=== PATIENT | male | born 1995 | race Caucasian/White ===

== ENCOUNTER 2020-11-05 11:28 | Emergency (ER) | payer OTHER, SELFPAY ==
[2020-11-05 11:48] VITALS: BP 116/75; PULSE 84; RESP 16; TEMP 36.8; O2SAT 97
--- NOTE | 2020-11-05 13:15 | W.ED.HEATRA ---
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 Patient denies any loss of consciousness. Patient denies any headache or nausea or vomiting. Patient appears well. Patient appears no acute distress. MD Complaint: head injury Onset (ago): hour(s) Mechanism of Injury: other (Working cattle) Place: home Loss of Consciousness: no Location of injury: face Severity: mild Quality: dull Radiation: none Review of Systems General: Reports: 10 or more systems reviewed and unremarkable except in HPI and below Skin/Breast: Reports: other (Contusion right eyebrow) Physical Exam Const: COMMON NORMALS: no acute distress and patient oriented x3 GENERAL APPEARANCE: cooperative HENMT: COMMON NORMALS: normocephalic, TM's normal bilaterally and Normal external nose present HEAD & SCALP: normal to inspection and normocephalic NOSE: Normal external nose present TYMPANIC MEMBRANE: TM's normal bilaterally MOUTH: Normal oral and palatal mucosa present THROAT: posterior oropharynx normal Eye: GENERAL EYE: appearance normal, both eyes and all related structures Neck/C-Spine: COMMON NORMALS: full ROM Chest: COMMONS NORMALS: normal inspection of the chest Resp: COMMON NORMALS: normal respiratory effort EFFORT & INSPECTION: Yes able to speak in complete sentences Cardio: COMMON NORMALS: regular rate and regular rhythm RATE: regular rate RHYTHM: regular rhythm GI: COMMON NORMALS: non-tender : COMMON NORMALS: Yes no CVA tenderness BLADDER/KIDNEY EXAM: Yes no CVA tenderness Back/Pelvis: COMMON NORMALS: no CVA tenderness and thoracic and lumbar spine normal to inspection Extremity: COMMON NORMALS: normal to inspection Neuro: COMMON NORMALS: patient oriented x3 and moves all extremities Psych: COMMON NORMALS: mental status grossly normal and cooperative Skin: COMMON NORMALS: no rashes or lesions noted GENERAL SKIN EXAM: no rashes or lesions noted Course Vital Signs: Vital signs: Vital Signs Temperature 98.2 F 11/05/20 11:48 Pulse Rate 84 11/05/20 11:48 Respiratory Rate 16 11/05/20 11:48 Blood Pressure 116/75 11/05/20 11:48 Pulse Oximetry 97 11/05/20 11:48 MDM - Head Injury MDM Narrative: Medical decision making narrative: Patient comes in today with injury to the right eyebrow. On exam patient has no palpable crepitus or tenderness to the right eyebrow or facial bones. Pupils are equal and reactive. No nystagmus. Bilateral tympanic membranes are clear. No signs of significant head injury or fractures are noted. Patient does have a small area of contusion/hematoma to the right lateral eyebrow area. EOMs are intact. Differential diagnosis includes concussion, intracranial bleeding, facial fracture. Exam noted no signs of fracture or intracranial bleeding. Reviewed exam with patient with recommendations for treatment and monitoring. Patient reported understanding agreed to plan. Family member was also present and agreed to plan. Discharge Plan Discharge Patient Disposition: Home Clinical Impression: Contusion of right eyebrow Qualifiers: Encounter type: initial encounter Qualified Code(s): S00.11XA - Contusion of right eyelid and periocular area, initial encounter Closed head injury Qualifiers: Encounter type: initial encounter Qualified Code(s): S09.90XA - Unspecified injury of head, initial encounter Condition: Stable Discharge Orders: Discharge ED (Routine); Ordered 11/05/20 Ordered By: Blaine Carnes Discharge Diet: Usual diet Discharge Activity: Increase activity as tolerated Patient Instructions: Minor Head Injury (ED), Opioid Safety Activity Restrictions/Additional Instructions: Light activity. Use acetaminophen or ibuprofen for pain. Drink plenty of water. Return to the emergency department for severe headache, or persistent nausea and vomiting. Follow-up with primary care as needed. Patient should not be alone for the next 24 hours. Patient may sleep and rest as normal. Coding Level of Care Code ED Vice President Diversity for James Corado
[2020-11-05 13:24] VITALS: BP 115/76; PULSE 73; RESP 16; O2SAT 97
== END 2020-11-05 13:24 | disposition home or self-care (01) ==
PROVIDERS: Emergency Provider Nurse Practitioner Family
DX: S00.11XA Contusion of right eyelid and periocular area, initial encounter (principal); S09.8XXA Other specified injuries of head, initial encounter; W55.22XA Struck by cow, initial encounter
CPT/HCPCS: 99281